=== PATIENT | female | born 1985 | race Caucasian/White ===

== ENCOUNTER 2017-07-31 00:55 | Emergency (ER) | payer SELFPAY ==
[~2017-07-31] VITALS: Ht 160 cm; Wt 68.0 kg
[2017-07-31 00:55] VITALS: BP 118/82
[2017-07-31] MEDS ORDERED: THIAMINE 100 MG TABLET. PO ONE (01:15)
[2017-07-31] MEDS ORDERED: IV NORMAL SALINE 1,000ML 1,000 ML IV ONE ×2 (01:15)
--- NOTE | 2017-07-31 01:59 | PHYS DOC ---
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 Patient drank some much that she forgot some details of what happened. She denies trauma. No drug use. Her intoxication is clinically resolving and she does not want further treatment after her initial evaluation. Review of Systems Review of Systems Constitutional: Denies fever or chills [] Eyes: Denies change in visual acuity, redness, or eye pain [] HENT: Denies nasal congestion or sore throat [] Respiratory: Denies cough or shortness of breath [] Cardiovascular: No additional information not addressed in HPI [] GI: Denies abdominal pain, nausea, vomiting, bloody stools or diarrhea [] : Denies dysuria or hematuria [] Musculoskeletal: Denies back pain or joint pain [] Integument: Denies rash or skin lesions [] Neurologic: Denies headache, focal weakness or sensory changes [] Endocrine: Denies polyuria or polydipsia [] All other systems were reviewed and found to be within normal limits, except as documented in this note. Current Medications Current Medications Current Medications Medications (Trade) Dose Ordered Sig/Lisa Start Time Stop Time Status Last Admin Dose Admin Sodium Chloride 1,000 ml @ 1,000 mls/hr 1X ONCE 07/31/17 01:15 07/31/17 02:14 UNV Thiamine HCl (Vitamin B-1) 100 mg 1X ONCE 07/31/17 01:15 07/31/17 01:16 UNV Physical Exam Physical Exam Patient with very mild but resolving intoxication. She had mild tachycardia on arrival over this resolved spontaneously without IV hydration. Remainder of exam is benign Constitutional: Well developed, well nourished, no acute distress, non-toxic appearance. [] HENT: Normocephalic, atraumatic, bilateral external ears normal, oropharynx moist, no oral exudates, nose normal. [] Eyes: PERRLA, EOMI, conjunctiva normal, no discharge. [] Neck: Normal range of motion, no tenderness, supple, no stridor. [] Cardiovascular:Heart rate regular rhythm, no murmur [] Lungs & Thorax: Bilateral breath sounds clear to auscultation [] Abdomen: Bowel sounds normal, soft, no tenderness, no masses, no pulsatile masses. [] Skin: Warm, dry, no erythema, no rash. [] Back: No tenderness, no CVA tenderness. [] Extremities: No tenderness, no cyanosis, no clubbing, ROM intact, no edema. [] Neurologic: Alert and oriented X 3, normal motor function, normal sensory function, no focal deficits noted. [] Psychologic: Affect normal, judgement normal, mood normal. [] EKG EKG [] Radiology/Procedures Radiology/Procedures [] Course & Med Decision Making Course & Med Decision Making Pertinent Labs and Imaging studies reviewed. (See chart for details) Signs and symptoms consistent with mild and resolving intoxication after excessive alcohol use. Offered patient IV fluids however she refused. Tachycardia spontaneously resolved. No further workup or treatment indicated. Patient requests outpatient follow-up and sober friend is present to take her home accompany her ensure her safety. Patient is aware not to drive or operate machinery and strict return precautions given [] Dragon Disclaimer Dragon Disclaimer This electronic medical record was generated, in whole or in part, using a voice recognition dictation system. Departure Departure: Impression: Primary Impression: Alcohol intoxication Additional Impression: Alcohol abuse Disposition: 01 HOME, SELF-CARE Condition: IMPROVED Referrals: PCP,JAAML (PCP) Patient Instructions: Alcohol Intoxication Additional Instructions: As a result of excessive alcohol use your intoxicated this evening. Your heart rate was elevated which suggests dehydration however it has now normalized. Rest and drink plenty of nonalcoholic fluids. Do not drive or operate machinery until you feel completely returned to her baseline. Follow-up with your doctor tomorrow and return immediately for new severe worsening symptoms Problem Qualifiers BAILEY OLIVER MD July 31, 2017 01:59
== END 2017-07-31 02:00 | disposition home or self-care (01) ==
LOC: ER 00:55
DX: F10.129 Alcohol abuse with intoxication, unspecified (principal)
CPT/HCPCS: 99281